=== PATIENT | female | born 1995 | race Caucasian/White ===

== ENCOUNTER 2017-11-30 16:59 | Emergency (ER) | payer MEDICAID, OTHER ==
[~2017-11-30] VITALS: Ht 167.6 cm; Wt 91.0 kg
[~2017-11-30 16:59] MED LIST: MACR100C PO; TYLE3 PO
[2017-11-30 17:02] VITALS: BP 136/67; PULSE 64; RESP 16; TEMP 97.3; O2SAT 98
[2017-11-30 17:19] LABS: BILIRUBIN, URINE NEG (NEG); GLUCOSE,URINE NEG (NEG); KETONE, URINE TRACE mg/dL (NEG); NITRITE,URINE POS (NEG); URINE LEUKOCYTE ESTERASE MOD (NEG)
[2017-11-30 17:24] LABS: BLOOD, URINE TRACE (NEG)
[2017-11-30 17:25] LABS: BACTERIA, URINE OCC /hpf; RBC, URINE 0-3 /hpf (0-3); URINE COLOR YELLOW (YELLW/STRAW)
[2017-11-30] MEDS ORDERED: MACR100C2 PO (17:46)
--- NOTE | 2017-11-30 17:47 | PD ---
HPI Chief Complaint: Complaint Time Seen by Provider: 17:15 Travel History International Travel<30 days: No Contact w/Intl Traveler<30days: No Traveled to known affect area: No History of Present Illness HPI 22-year-old female presents to the emergency department complaining of dysuria, frequency, and occasional pelvic cramping after urination for approximately 3 days. States that she had similar symptoms after she gave to her first daughter and was diagnosed with urine tract infection. She is status post 8 weeks from her and is developing the symptoms. Patient denies fever or chills. Denies nausea, vomiting or diarrhea. She is currently lactating. Last menstrual period 3 days ago. Denies vaginal discharge or abdominal pain. PFSH Past Medical History Medical History: Denies Significant Hx Hx Anticoagulant Therapy: No Asthma: Yes Cardiovascular Problems: No Chemotherapy: No Cerebrovascular Accident: No Diabetes: No Diminished Hearing: No Respiratory: No Immunizations Current: Yes Tetanus Vaccination: Unknown Influenza Vaccination: No ?: Not LMP: POST 8 WEEKS : 1 Past Surgical History Surgical History: No Previous Surgery Social History Alcohol Use: No Tobacco Use: No Substance Use: No Allergies-Medications (Allergen,Severity, Reaction): Uncoded Allergies: CHICKEN POX VACCINE (Adverse Reaction, Severe, 01/10/12) WAS HOSPITALIZED AFTER RECEIVING VACCINE Reported Meds & Prescriptions Reported Meds & Active Scripts Active Macrobid (Nitrofurantoin Monoh/Nitrofur Macro) 100 Mg Cap 100 Mg PO BID 5 Days Review of Systems Except as stated in HPI: all other systems reviewed are Neg Physical Exam Narrative GENERAL: Well-developed well-nourished in no apparent distress SKIN: Focused skin assessment warm/dry. HEAD: Atraumatic. Normocephalic. EYES: Pupils equal and round. No scleral icterus. No injection or drainage. CARDIOVASCULAR: Regular rate and rhythm. No murmur appreciated. RESPIRATORY: No accessory muscle use. Clear to auscultation. Breath sounds equal bilaterally. GASTROINTESTINAL: Abdomen soft, non-tender, nondistended. Hepatic and splenic margins not palpable. No rebound tenderness MUSCULOSKELETAL: No obvious deformities. No clubbing. No cyanosis. No edema. No CVA tenderness NEUROLOGICAL: Awake and alert. No obvious cranial nerve deficits. Motor grossly within normal limits. Normal speech. PSYCHIATRIC: Appropriate mood and affect; insight and judgment normal. Data Data Last Documented VS Vital Signs Date Time Temp Pulse Resp B/P (MAP) Pulse Ox O2 Delivery O2 Flow Rate FiO2 11/30/17 17:02 97.3 64 16 136/67 (90) 98 Orders Orders Urinalysis - C+S If Indicated (11/30/17 17:04) Urine Culture (11/30/17 17:15) Ed Discharge Order (11/30/17 17:47) Labs Laboratory Tests Test 11/30/17 17:15 Urine Collection Type CLEAN CATCH Urine Color YELLOW Urine Turbidity SLIGHTY CLOUDY Urine pH 6.0 Urine Specific [place] 1.029 Urine Protein TRACE mg/dL Urine Glucose (UA) NEG mg/dL Urine Ketones TRACE mg/dL Urine Occult Blood TRACE Urine Nitrite POS Urine Bilirubin NEG Urine Leukocyte Esterase MOD Urine RBC 0-3 /hpf Urine WBC 25-49 /hpf Urine Bacteria OCC /hpf Microscopic Urinalysis Comment CULTURE INDICATED MDM Medical Decision Making Medical Screen Exam Complete: Yes Emergency Medical Condition: Yes Differential Diagnosis UTI, cystitis, pyelonephritis Narrative Course 22-year-old female presents to the emergency department complaining of dysuria, frequency, and occasional pelvic cramping after urination for approximately 3 days. States that she had similar symptoms after she gave to her first daughter and was diagnosed with urine tract infection. She is status post 8 weeks from her and is developing the symptoms. Patient denies fever or chills. Denies nausea, vomiting or diarrhea. She is currently lactating. Last menstrual period 3 days ago. Denies vaginal discharge or abdominal pain. Vital signs stable. Physical exam findings unremarkable. Urinalysis consistent with urinary tract infection. No evidence of pyelonephritis. She has no other symptoms except for dysuria, frequency, and bladder spasms after urination. Macrobid prescribed for her infection. Patient advised to increase fluid intake. Follow-up primary care physician. Return to the emergency department for worsening or persistent symptoms. Diagnosis Primary Impression: UTI (urinary tract infection) Qualified Codes: N30.00 - Acute cystitis without hematuria Referrals: Primary Care Physician Additional Instructions: Follow up with your primary care physician within 2-3 days. If your symptoms persist or worsen, return to the emergency department. Take all medication as prescribed. Ensure you have adequate fluid intake with a nutritious diet Scripts Nitrofurantoin Monohydrate Macrocrystals (Macrobid) 100 Mg Cap 100 MG PO BID for Infection for 5 Days, #10 CAP 0 Refills Prov: Carrie Riggs 11/30/17 Disposition: 01 DISCHARGE HOME Condition: Stable Carrie Riggs Nov 30, 2017 17:47
== END 2017-11-30 18:02 | disposition home or self-care (01) ==
LOC: PHEFT 16:59
DX: N30.00 Acute cystitis without hematuria (principal); B96.20 Unspecified Escherichia coli [E. coli] as the cause of diseases classified elsewhere; Z16.11 Resistance to penicillins
CPT/HCPCS: 81001; 87077; 87086; 87186; 99283